=== PATIENT | female | born 1940 | race African-American/Black ===

== ENCOUNTER 2019-06-14 20:25 | Emergency (ER) | payer OTHER, MEDICARE ==
[2019-06-14] MEDS: CEFTRIAXONE 1 GM/50 ML (PMX) 50 ML IVPB (21:12)
[2019-06-14] MEDS: KETOROLAC 15 MG INJ IV (21:13)
[2019-06-14] MEDS: ACETAMINOPHEN 325 MG TAB PO (21:13)
[2019-06-14] MEDS: SODIUM CHLORIDE 0.9% 1L BAG IV* (21:13)
[2019-06-14] MEDS: DEXAMETHASONE 10 MG/ML 1 ML INJ IV (21:13)
[2019-06-14 21:17] LABS: ADD MAN DIFF? NO
[2019-06-14 21:22] LABS: BASOPHILS % 0.3 % (0.0-2.0); EOSINOPHILS # 0.1 10^3/ul (0.0-0.5); EOSINOPHILS % 0.6 % (0.0-7.0); HEMATOCRIT 37.5 % (37.0-47.0); HEMOGLOBIN 11.9 g/dl (12.0-16.0); LYMPHOCYTES # 1.2 10^3/ul (0.8-2.9); LYMPHOCYTES % 11.9 % (15.0-51.0); MEAN CORPUSCULAR HGB CONC 31.7 g/dl (32.0-37.0); MEAN CORPUSCULAR VOLUME 110.3 fl (82.0-101.0); MEAN PLATELET VOLUME 11.3 fl (7.4-10.4); MONOCYTE # 1.1 10^3/ul (0.3-0.9); MONOCYTES % 10.7 % (0.0-11.0); NEUTROPHIL # 7.8 10^3/ul (1.6-7.5); NEUTROPHILS % 76.1 % (39.0-77.0); PLATELET COUNT 160 10^3/UL (140-415); RED CELL DISTRIBUTION WIDTH 13.4 % (11.5-14.5)
[2019-06-14 21:22] LABS: WHITE BLOOD COUNT 10.2 10^3/ul (4.8-10.8)
[2019-06-14 21:40] LABS: ALANINE AMINOTRANSFERASE 14 IU/L (13-69); ALBUMIN 3.7 g/dl (3.3-4.9); ALBUMIN/GLOBULIN RATIO 1.23; ALKALINE PHOSPHATASE 93 IU/L (42-121); ANION GAP 9 (5-13); ASPARTATE AMINO TRANSFERASE 26 IU/L (15-46); BILIRUBIN,INDIRECT 0.5 mg/dl (0-1.1); BILIRUBIN,TOTAL 0.5 mg/dl (0.2-1.3); BLOOD UREA NITROGEN 13 mg/dl (7-20); CALCIUM 9.1 mg/dl (8.4-10.2); CARBON DIOXIDE 24 mmol/L (21-31); CHLORIDE 108 mmol/L (97-110); CREATININE 1.47 mg/dl (0.44-1.00); GLUCOSE 95 mg/dl (70-220); POTASSIUM 4.9 mmol/L (3.5-5.1); SODIUM 141 mmol/L (135-144); TOTAL PROTEIN 6.7 g/dl (6.1-8.1)
[2019-06-14 21:42] LABS: INR 0.99; PROTIME 13.2 Sec (11.9-14.9)
[2019-06-14 21:43] LABS: PARTIAL THROMBOPLASTIN TIME 34.3 Sec (23.0-35.0)
[2019-06-14 21:51] LABS: TROPONIN-I < 0.012 ng/ml (0.000-0.120)
[2019-06-14] MEDS: AZITHROMYCIN 500MG/NS (PMX) 250 ML IV (22:12)
[2019-06-14 23:00] LABS: ADD UMIC YES; UR ASCORBIC ACID NEGATIVE (NEGATIVE); UR BILIRUBIN (Dip) NEGATIVE (NEGATIVE); UR BLOOD (Dip) 2+ mg/dL (NEGATIVE); UR CLARITY CLEAR (CLEAR); UR COLOR YELLOW (YELLOW); UR GLUCOSE (Dip) NEGATIVE (NEGATIVE); UR KETONES (Dip) NEGATIVE (NEGATIVE); UR LEUKOCYTE ESTERASE (Dip) 2+ Leu/ul (NEGATIVE); UR NITRITE (Dip) NEGATIVE (NEGATIVE); UR RBC 5 /HPF (0-5); UR SPECIFIC GRAVITY (Dip) 1.009 (1.003-1.030); UR SQUAMOUS EPITHELIAL CELL FEW /HPF (FEW); UR TOTAL PROTEIN (Dip) NEGATIVE (NEGATIVE); UR UROBILINOGEN (Dip) NEGATIVE (NEGATIVE); UR WBC 12 /HPF (0-5)
[2019-06-14 23:32] LABS: LACTIC ACID 2.4 mmol/L (0.5-2.0)
== END 2019-06-15 | disposition home or self-care (01) ==
LOC: E/R 06-15
DX: J18.1 Lobar pneumonia, unspecified organism (principal); I10 Essential (primary) hypertension; M10.072 Idiopathic gout, left ankle and foot; R06.02 Shortness of breath; Z87.891 Personal history of nicotine dependence
CPT/HCPCS: 36415; 71045; 80053; 81001; 83605; 84484; 85025; 85610; 85730; 87040-91; 87086; 93005; 96374; 96375; 99285-25